=== PATIENT | male | born 1975 | race Caucasian/White ===

== ENCOUNTER → 2016-11-25 | Outpatient (CLI) | payer MEDICARE, MEDICAID ==
[~2016-11-25] MED LIST: FAMO20TA PO; FLUO20CA8 PO; FLUO20CA9 PO; PERP8TAB4 PO; Trilafon PO
== END ==
LOC: M OUTALCOH 09:22
PROVIDERS: ATTEND Psychiatry & Neurology Psychiatry
DX: Z13.9 Encounter for screening, unspecified (principal); F15.20 Other stimulant dependence, uncomplicated; F12.20 Cannabis dependence, uncomplicated

== ENCOUNTER 2016-11-29 09:07 | Emergency (ER) | payer MEDICARE, MEDICAID ==
[~2016-11-29] VITALS: Ht 180.3 cm; Wt 88.9 kg
[2016-11-29 09:08] VITALS: BP 138/86
[2016-11-29] MEDS ORDERED: FLUO20CA8 PO (09:19)
[2016-11-29] MEDS ORDERED: Trilafon PO (09:19)
[2016-11-29] MEDS ORDERED: PERP8TAB4 PO (09:40)
[2016-11-29] MEDS ORDERED: FLUO20CA9 PO (10:14)
[2016-11-29] MEDS ORDERED: FAMO20TA PO (10:14)
== END 2016-11-29 10:32 | disposition home or self-care (01) ==
LOC: M ED 10:13
DX: Z76.0 Encounter for issue of repeat prescription (principal)

== ENCOUNTER 2016-12-09 10:46 | Outpatient (RCR) | payer MEDICARE, MEDICAID | END 2016-12-13 | LOC: M OUTALCOH 10:46 | PROVIDERS: ATTEND Psychiatry & Neurology Psychiatry | DX: F15.20 Other stimulant dependence, uncomplicated (principal) ==

== ENCOUNTER 2017-01-08 14:00 | Outpatient (RCR) | payer MEDICARE, MEDICAID | END 2017-01-12 | LOC: M OUTALCOH 14:00 | PROVIDERS: ATTEND Psychiatry & Neurology Psychiatry | DX: F15.20 Other stimulant dependence, uncomplicated (principal); F12.20 Cannabis dependence, uncomplicated ==

== ENCOUNTER 2017-02-05 14:00 | Outpatient (RCR) | payer MEDICARE, MEDICAID | END 2017-02-12 | LOC: M OUTALCOH 14:00 | PROVIDERS: ATTEND Psychiatry & Neurology Psychiatry | DX: F15.20 Other stimulant dependence, uncomplicated (principal); F12.20 Cannabis dependence, uncomplicated ==

== ENCOUNTER 2017-02-26 05:02 | Emergency (ER) | payer MEDICAID, MEDICARE, OTHER ==
[~2017-02-26] VITALS: Ht 180.3 cm; Wt 90.0 kg
[2017-02-26] MEDS ORDERED: NORCO, ANEXSIA 5/325MG TABLET (HYDROcodone/ACETAMINOPHEN) PO ONE (06:30)
[2017-02-26] MEDS ORDERED: NORCOTAB PO (06:40)
[2017-02-26 06:46] VITALS: BP 138/89
--- NOTE | 2017-02-26 07:52 | REP ---
Clinical: Trauma. Technique: AP, lateral, bilateral oblique views of the left hand. Findings: Comminuted boxer's fracture involving the fifth metacarpal bone with volar angulation to the distal fracture fragment and overlying soft tissue swelling noted. Remainder examination appears normal. Impression: Comminuted closed boxer's fracture of the fifth metacarpal bone. Signed by Jan Painting MD 02/26/2017 07:43 A
== END 2017-02-26 06:47 | disposition home or self-care (01) ==
LOC: M ED 06:21
DX: S62.307A Unspecified fracture of fifth metacarpal bone, left hand, initial encounter for closed fracture (principal); W11.XXXA Fall on and from ladder, initial encounter; Y92.099 Unspecified place in other non-institutional residence as the place of occurrence of the external cause; Y93.9 Activity, unspecified; Y99.9 Unspecified external cause status; F17.200 Nicotine dependence, unspecified, uncomplicated; Z79.899 Other long term (current) drug therapy; Z88.8 Allergy status to other drugs, medicaments and biological substances

== ENCOUNTER 2017-03-13 09:00 | Outpatient (RCR) | payer OTHER, MEDICAID ==
[~2017-03-13 09:00] MED LIST changes: +FLUO20CA19 PO; -FLUO20CA9 PO; +NORCOTAB PO; +PERP8TAB25 PO; -PERP8TAB4 PO
== END 2017-03-14 ==
LOC: M OUTALCOH 09:00
PROVIDERS: ATTEND Psychiatry & Neurology Psychiatry
DX: F15.20 Other stimulant dependence, uncomplicated (principal); F12.20 Cannabis dependence, uncomplicated

== ENCOUNTER 2017-04-10 09:00 | Outpatient (RCR) | payer MEDICARE, MEDICAID | END 2017-04-14 | LOC: M OUTALCOH 09:00 | PROVIDERS: ATTEND Psychiatry & Neurology Psychiatry | DX: F15.20 Other stimulant dependence, uncomplicated (principal); F12.20 Cannabis dependence, uncomplicated ==

== ENCOUNTER → 2017-04-10 | Outpatient (REF) | payer MEDICARE ==
[2017-04-18 14:14] LABS: Cannabidiol Negative (.)
== END ==
LOC: M LABDRAW1 15:36
PROVIDERS: ATTEND Psychiatry & Neurology Psychiatry
DX: F15.20 Other stimulant dependence, uncomplicated (principal); F12.20 Cannabis dependence, uncomplicated

== ENCOUNTER 2017-06-02 15:00 | Outpatient (RCR) | payer MEDICARE | END 2017-06-14 | LOC: M OUTALCOH 15:00 | PROVIDERS: ATTEND Psychiatry & Neurology Psychiatry | DX: F15.20 Other stimulant dependence, uncomplicated (principal); F12.20 Cannabis dependence, uncomplicated ==

== ENCOUNTER → 2017-12-09 | Outpatient (CLI) | payer MEDICARE, MEDICAID | LOC: M OUTALCOH 10:42 | DX: Z13.9 Encounter for screening, unspecified (principal); F15.20 Other stimulant dependence, uncomplicated; F12.20 Cannabis dependence, uncomplicated | CPT/HCPCS: H0001 ==

== ENCOUNTER 2017-12-15 13:29 | Outpatient (RCR) | payer MEDICARE | END 2018-01-12 | disposition still patient (30) | LOC: M OUTALCOH 13:29 | DX: F15.20 Other stimulant dependence, uncomplicated (principal); F12.20 Cannabis dependence, uncomplicated; F10.20 Alcohol dependence, uncomplicated | CPT/HCPCS: 90834 ==

== ENCOUNTER 2018-01-21 14:16 | Outpatient (RCR) | payer MEDICARE | END 2018-02-12 | LOC: M OUTALCOH 02-11 13:30 | DX: F15.20 Other stimulant dependence, uncomplicated (principal); F12.20 Cannabis dependence, uncomplicated; F10.20 Alcohol dependence, uncomplicated | CPT/HCPCS: 90834 ==

== ENCOUNTER 2018-02-20 11:09 | Outpatient (RCR) | payer MEDICARE | END 2018-03-14 | LOC: M OUTALCOH 11:09 | DX: F15.20 Other stimulant dependence, uncomplicated (principal); F12.20 Cannabis dependence, uncomplicated; F10.20 Alcohol dependence, uncomplicated | CPT/HCPCS: 90832 ==

== ENCOUNTER 2018-04-01 14:22 | Outpatient (RCR) | payer MEDICARE | END 2018-04-14 | LOC: M OUTALCOH 14:22 | DX: F15.20 Other stimulant dependence, uncomplicated (principal); F12.20 Cannabis dependence, uncomplicated; F10.20 Alcohol dependence, uncomplicated | CPT/HCPCS: 90832 ==

== ENCOUNTER 2018-05-20 14:29 | Outpatient (RCR) | payer MEDICARE | END 2018-06-14 | LOC: M OUTALCOH 14:29 | DX: F15.20 Other stimulant dependence, uncomplicated (principal); F12.20 Cannabis dependence, uncomplicated; F10.20 Alcohol dependence, uncomplicated | CPT/HCPCS: 90834 ==

== ENCOUNTER → 2018-07-15 | Outpatient (RCR) | payer MEDICARE | LOC: M OUTALCOH 12:34 | DX: F15.20 Other stimulant dependence, uncomplicated (principal); F12.20 Cannabis dependence, uncomplicated; F10.20 Alcohol dependence, uncomplicated | CPT/HCPCS: 90834 ==

== ENCOUNTER 2018-08-12 14:11 | Outpatient (RCR) | payer MEDICARE | END 2018-08-14 | LOC: M OUTALCOH 14:11 | DX: F15.20 Other stimulant dependence, uncomplicated (principal); F12.20 Cannabis dependence, uncomplicated; F10.20 Alcohol dependence, uncomplicated | CPT/HCPCS: 90834 ==

== ENCOUNTER 2018-09-10 13:59 | Outpatient (RCR) | payer MEDICARE | END 2018-09-14 | LOC: M OUTALCOH 13:59 | PROVIDERS: ATTEND Psychiatry & Neurology Psychiatry | DX: F10.20 Alcohol dependence, uncomplicated (principal); F12.20 Cannabis dependence, uncomplicated; F15.20 Other stimulant dependence, uncomplicated ==

== ENCOUNTER 2018-10-14 14:00 | Outpatient (RCR) | payer MEDICARE | END 2018-10-15 | LOC: M OUTALCOH 14:00 | PROVIDERS: ATTEND Psychiatry & Neurology Psychiatry | DX: F10.20 Alcohol dependence, uncomplicated (principal); F12.20 Cannabis dependence, uncomplicated; F15.20 Other stimulant dependence, uncomplicated ==

== ENCOUNTER 2018-10-28 13:52 | Outpatient (RCR) | payer MEDICARE | END 2018-11-12 | LOC: M OUTALCOH 13:52 | PROVIDERS: ATTEND Psychiatry & Neurology Psychiatry | DX: F10.20 Alcohol dependence, uncomplicated (principal); F12.20 Cannabis dependence, uncomplicated; F15.20 Other stimulant dependence, uncomplicated ==

== ENCOUNTER → 2018-12-23 | Outpatient (REF) | payer MEDICARE ==
[~2018-12-23] MED LIST changes: +HYDR-3715 PO; -NORCOTAB PO
[2018-12-23 12:28] LABS: BASO % 0.5 % (0.0-1.0); EOS # 0.1 10^3/uL (0.0-0.50); EOS % 0.6 % (0.0-3.0); HEMATOCRIT 45.5 % (42.0-52.0); HEMOGLOBIN 15.2 g/dl (13.5-17.5); LYMPH # 2.6 10^3/uL (1.5-4.5); LYMPH % 29.9 % (24.0-44.0); MEAN CORPUSCULAR HEMOGLOBIN 29.9 pg (27.0-33.0); MEAN CORPUSCULAR HGB CONC 33.4 g/dl (32.0-36.5); MEAN CORPUSCULAR VOLUME 89.6 fl (80.0-96.0); MONO # 0.9 10^3/uL (0.0-0.8); MONO % 10.6 % (0.0-5.0); NEUTROPHILS # 5.1 10^3/uL (1.8-7.7); NEUTROPHILS % 58.2 % (36.0-66.0); PLATELET COUNT, AUTOMATED 272 10^3/uL (150-450); RED BLOOD COUNT 5.08 10^6/uL (4.30-6.10); WHITE BLOOD COUNT 8.8 10^3/uL (4.0-10.0)
[2018-12-23 12:30] LABS: APPEARANCE, URINE HAZY (CLEAR); BACTERIA, URINE AUTO NEGATIVE (NEGATIVE); BILIRUBIN, URINE AUTO NEGATIVE (NEGATIVE); BLOOD, URINE BLOOD NEGATIVE (NEGATIVE); CALCIUM OXALATE CRYSTALS SMALL; COLOR, URINE YELLOW (YELLOW); GLUCOSE, URINE (UA) AUTO NEGATIVE (NEGATIVE); KETONE, URINE AUTO NEGATIVE (NEGATIVE); LEUKOCYTE ESTERASE, URINE AUTO NEGATIVE (NEGATIVE); MUCUS, URINE SMALL (NEGATIVE); NITRITE, URINE AUTO NEGATIVE (NEGATIVE); PROTEIN, URINE AUTO NEGATIVE (NEGATIVE); RBC, URINE AUTO 5 /HPF (0-3); SPECIFIC GRAVITY URINE AUTO 1.025 (1.002-1.035); SQUAMOUS EPITHELIAL CELL UR AU 0 /HPF (0-6); WBC, URINE AUTO 1 /HPF (0-3)
[2018-12-23 13:36] LABS: ALBUMIN 3.8 GM/DL (3.2-5.2); ALT/SGPT 39 U/L (12-78); BILIRUBIN,TOTAL 0.2 MG/DL (0.2-1.0); BLOOD UREA NITROGEN 9 MG/DL (7-18); CALCIUM LEVEL 8.2 MG/DL (8.5-10.1); CARBON DIOXIDE LEVEL 27 MEQ/L (21-32); CHLORIDE LEVEL 107 MEQ/L (98-107); CHOLESTEROL LEVEL 152 MG/DL (<200); CREATININE FOR GFR 0.87 MG/DL (0.70-1.30); FREE T4 1.15 NG/DL (0.76-1.46); GLOMERULAR FILTRATION RATE > 60.0 (>60); GLUCOSE, FASTING 109 MG/DL (70-100); HDL CHOLESTEROL 38 MG/DL (>40); HEPATITIS A ANTIBODY IGM NEGATIVE (NEGATIVE); HEPATITIS B CORE ANTIBODY IGM NEGATIVE (NEGATIVE); HEPATITIS B SURFACE ANTIGEN NEGATIVE (NEGATIVE); HIV 1&2 SCREEN CENTAUR NEGATIVE (NEGATIVE); LDL CHOLESTEROL 79 MG/DL (<100); NON-HDL-C 114 MG/DL; POTASSIUM SERUM 3.8 MEQ/L (3.5-5.1); SODIUM LEVEL 140 MEQ/L (136-145); TOTAL 25(OH) VITAMIN D 9.4 NG/ML (30.0-100.0); TOTAL PROTEIN 6.8 GM/DL (6.4-8.2); TRIGLYCERIDES LEVEL 173 MG/DL (<150)
[2018-12-23 13:59] LABS: CHLAMYDIA DNA AMPLIFICATION NEGATIVE (NEGATIVE); GC DNA AMPLIFICATION NEGATIVE (NEGATIVE)
[2018-12-23 14:10] LABS: HEMOGLOBIN A1c 5.5 %
[2018-12-25 00:09] LABS: Lyme Disease IgG/IgM Antibodie <0.91 ISR (0.00-0.90); Lyme Disease IgM Ab Quantitati <0.80 index (0.00-0.79)
== END ==
LOC: M LAB REF 11:50
PROVIDERS: ATTEND Family Medicine
DX: Z00.01 Encounter for general adult medical examination with abnormal findings (principal); Z11.3 Encounter for screening for infections with a predominantly sexual mode of transmission; Z13.228 Encounter for screening for other metabolic disorders

== ENCOUNTER 2018-12-30 13:52 | Outpatient (RCR) | payer MEDICARE | END 2019-01-12 | LOC: M OUTALCOH 13:52 | PROVIDERS: ATTEND Psychiatry & Neurology Psychiatry | DX: F10.20 Alcohol dependence, uncomplicated (principal); F12.20 Cannabis dependence, uncomplicated; F15.20 Other stimulant dependence, uncomplicated ==

== ENCOUNTER → 2019-01-11 | Outpatient (REF) | payer MEDICARE ==
[2019-01-11 17:56] LABS: APPEARANCE, URINE CLEAR (CLEAR); BACTERIA, URINE AUTO NEGATIVE (NEGATIVE); BILIRUBIN, URINE AUTO NEGATIVE (NEGATIVE); BLOOD, URINE BLOOD NEGATIVE (NEGATIVE); CALCIUM OXALATE CRYSTALS SMALL; COLOR, URINE YELLOW (YELLOW); GLUCOSE, URINE (UA) AUTO NEGATIVE (NEGATIVE); KETONE, URINE AUTO NEGATIVE (NEGATIVE); LEUKOCYTE ESTERASE, URINE AUTO NEGATIVE (NEGATIVE); MUCUS, URINE SMALL (NEGATIVE); NITRITE, URINE AUTO NEGATIVE (NEGATIVE); PROTEIN, URINE AUTO NEGATIVE (NEGATIVE); RBC, URINE AUTO 0 /HPF (0-3); SPECIFIC GRAVITY URINE AUTO 1.021 (1.002-1.035); SQUAMOUS EPITHELIAL CELL UR AU 0 /HPF (0-6); UROBILINOGEN, URINE AUTO 0.2 mg/dL (0.0-2.0); WBC, URINE AUTO 0 /HPF (0-3)
== END ==
LOC: M SMT 17:03
PROVIDERS: ATTEND Nurse Practitioner Family
DX: R31.29 Other microscopic hematuria (principal)
CPT/HCPCS: 81001; 87086; 88108; G0463

== ENCOUNTER → 2019-01-18 | Outpatient (CLI) | payer MEDICAID, MEDICARE ==
[~2019-01-18] MED LIST changes: +ISOVUE-370 76% 100ML VIAL (Q9967) As Ordered ONE
--- NOTE | 2019-01-19 05:38 | REP ---
Clinical: Hematuria. Technique: Axial precontrast, contrast enhanced, and delayed images of the abdomen and pelvis using 100 ml Isovue 370 intravenous contrast material with coronal and sagittal re-formations and 3-D CT urogram. Findings: A very subtle 1.1 cm cyst is identified in the mid pole region of the left kidney. The kidneys as well as ureters and bladder are otherwise normal in all phases of enhancement. No evidence for nephroureterolithiasis, hydroureteronephrosis or renal mass lesion. Liver, spleen, pancreas, gallbladder, and bilateral adrenal glands are normal. The enteric system is without obstruction or acute inflammatory process. Normal terminal ileum and appendix are identified in the right lower quadrant. Pelvis demonstrates normal bladder and age appropriate prostate/seminal vesicles. No ascites. No free air. No significant adenopathy. Atherosclerotic changes of the aorta noted without aneurysm or dissection. Lung bases demonstrate minimal posterior basilar dependent change. Impression: 1. 1.1 cm cyst in the left kidney. No further urinary tract pathology appreciated. 2. No acute abdominopelvic pathology noted. Electronically Signed by Jan Painting MD 01/19/2019 05:30 A
== END ==
LOC: M RAD 15:29
PROVIDERS: ATTEND Nurse Practitioner Family
DX: N28.1 Cyst of kidney, acquired (principal)
CPT/HCPCS: 74178; Q9967

== ENCOUNTER 2019-02-10 13:00 | Outpatient (RCR) | payer MEDICARE ==
[~2019-02-10 13:00] MED LIST changes: -ISOVUE-370 76% 100ML VIAL (Q9967) As Ordered ONE
== END 2019-02-12 ==
LOC: M OUTALCOH 13:00
PROVIDERS: ATTEND Psychiatry & Neurology Psychiatry
DX: F15.20 Other stimulant dependence, uncomplicated (principal); F12.20 Cannabis dependence, uncomplicated; F10.20 Alcohol dependence, uncomplicated

== ENCOUNTER 2019-03-10 13:06 | Outpatient (RCR) | payer MEDICARE | END 2019-03-14 | LOC: M OUTALCOH 13:06 | PROVIDERS: ATTEND Psychiatry & Neurology Psychiatry | DX: F15.20 Other stimulant dependence, uncomplicated (principal); F12.20 Cannabis dependence, uncomplicated; F10.20 Alcohol dependence, uncomplicated ==

== ENCOUNTER 2019-04-05 08:00 | Outpatient (RCR) | payer MEDICARE | END 2019-04-14 | LOC: M OUTALCOH 08:00 | PROVIDERS: ATTEND Psychiatry & Neurology Psychiatry | DX: F10.20 Alcohol dependence, uncomplicated (principal); F12.20 Cannabis dependence, uncomplicated; F15.20 Other stimulant dependence, uncomplicated ==

== ENCOUNTER 2019-05-03 07:52 | Outpatient (RCR) | payer MEDICARE | END 2019-05-15 | LOC: M OUTALCOH 07:52 | PROVIDERS: ATTEND Psychiatry & Neurology Psychiatry | DX: F10.20 Alcohol dependence, uncomplicated (principal); F12.20 Cannabis dependence, uncomplicated; F15.20 Other stimulant dependence, uncomplicated ==

== ENCOUNTER → 2019-06-14 | Outpatient (RCR) | payer MEDICARE | LOC: M OUTALCOH 05-24 08:58 | PROVIDERS: ATTEND Psychiatry & Neurology Psychiatry | DX: F10.20 Alcohol dependence, uncomplicated (principal); F12.20 Cannabis dependence, uncomplicated; F15.20 Other stimulant dependence, uncomplicated ==

== ENCOUNTER 2019-07-12 08:00 | Outpatient (RCR) | payer MEDICARE | END 2019-07-15 | LOC: M OUTALCOH 08:00 | PROVIDERS: ATTEND Psychiatry & Neurology Psychiatry | DX: F10.20 Alcohol dependence, uncomplicated (principal); F12.20 Cannabis dependence, uncomplicated; F15.20 Other stimulant dependence, uncomplicated ==

== ENCOUNTER 2019-08-09 08:00 | Outpatient (RCR) | payer MEDICARE | END 2019-08-14 | LOC: M OUTALCOH 08:00 | PROVIDERS: ATTEND Psychiatry & Neurology Psychiatry | DX: F15.20 Other stimulant dependence, uncomplicated (principal); F12.20 Cannabis dependence, uncomplicated; F10.20 Alcohol dependence, uncomplicated ==

== ENCOUNTER 2019-09-06 08:00 | Outpatient (RCR) | payer MEDICARE ==
[~2019-09-06 08:00] MED LIST changes: +FLUO20CA20 PO; -FLUO20CA8 PO
== END 2019-09-14 ==
LOC: M OUTALCOH 08:00
PROVIDERS: ATTEND Psychiatry & Neurology Psychiatry
DX: F10.20 Alcohol dependence, uncomplicated (principal); F12.20 Cannabis dependence, uncomplicated; F15.20 Other stimulant dependence, uncomplicated

== ENCOUNTER 2019-10-11 08:00 | Outpatient (RCR) | payer MEDICARE ==
[2019-10-19] MEDS ORDERED: INVE1.5T PO (09:38)
[2019-10-19] MEDS ORDERED: AMAN100T PO (09:38)
[2019-10-19] MEDS ORDERED: BUPR50TA PO (09:38)
[2019-10-19] MEDS ORDERED: INVE1.75 IM (10:32)
== END 2019-10-15 ==
LOC: M OUTALCOH 08:00
PROVIDERS: ATTEND Psychiatry & Neurology Addiction Medicine
DX: F10.20 Alcohol dependence, uncomplicated (principal); F12.20 Cannabis dependence, uncomplicated; F15.20 Other stimulant dependence, uncomplicated

== ENCOUNTER 2019-10-22 10:03 | Day surgery (SDC) | payer MEDICARE, MEDICAID ==
[~2019-10-22] VITALS: Ht 180.3 cm; Wt 104.7 kg
[~2019-10-22 10:03] MED LIST changes: +AMAN100T PO; +BUPR50TA PO; -FLUO20CA19 PO; +FLUO20CA22 PO; +INVE1.5T PO; +INVE1.75 IM; +LR 1,000 ML IV ONE; +ceFAZolin SOD 2 GM in IV 1 EA IV ONE
[2019-10-22] MEDS ORDERED: ROPIvacaine 0.5% 30 ML INJECTION (J2795 PER 1MG) ONE (10:04)
[2019-10-22] MEDS ORDERED: dexameTHASONE 10 MG/1 ML VIAL PRES.FREE (J1100) ONE (10:04)
[2019-10-22] MEDS ORDERED: LEVALBUTEROL 1.25 MG/0.5 ML CONCENTRATE NEB As Ordered ONE (11:46)
[2019-10-22] MEDS ORDERED: fentaNYL 100 MCG/2 ML INJECTION (J3010) As Ordered ONE ×2 (11:52→13:05)
[2019-10-22] MEDS ORDERED: MIDAZOLAM INJ 2 MG/2 ML VIAL (J2250) As Ordered ONE ×2 (11:52→13:05)
[2019-10-22] MEDS ORDERED: LEVALBUTEROL 1.25 MG/0.5 ML CONCENTRATE NEB INH ONE (12:00)
[2019-10-22] MEDS: MIDAZOLAM INJ 2 MG/2 ML VIAL (J2250) IV SCH (12:05)
[2019-10-22] MEDS: fentaNYL 100 MCG/2 ML INJECTION (J3010) IV SCH ×2 (12:05→12:10)
[2019-10-22] MEDS ORDERED: dexameTHASONE 4 MG/ML 1ML VIAL (J1100) As Ordered ONE (13:04)
[2019-10-22] MEDS ORDERED: METOCLOPRAMIDE INJ 10MG/2ML VIAL (J2765) As Ordered ONE (13:05)
[2019-10-22] MEDS ORDERED: propofoL 200 MG/20 ML VIAL As Ordered ONE (13:05)
[2019-10-22] MEDS ORDERED: LIDOCAINE 2% INJ 100 MG/5 ML SDV (FOR ANES.) As Ordered ONE (13:05)
[2019-10-22] MEDS ORDERED: ONDANSETRON 4MG/2ML VIAL (J2405) As Ordered ONE (13:05)
[2019-10-22] MEDS ORDERED: ePHEDrine SULFATE 25 MG/5 ML(5MG/ML) SYRINGE As Ordered ONE (13:28)
[2019-10-22] MEDS ORDERED: KETOROLAC 60 MG/2 ML VIAL (J1885) As Ordered ONE (14:26)
[2019-10-22] MEDS ORDERED: KETAMINE HCL 200 MG/20 ML VIAL As Ordered ONE (14:26)
--- NOTE | 2019-10-22 14:43 | REP ---
RIGHT FOREARM: Three views. HISTORY: Open reduction internal fixation. Intraoperative imaging. 70 seconds of fluoroscopy time is reported. FINDINGS: A sequence of three last image hold fluoroscopically obtained spot radiographs of the right wrist and forearm document screw plate fixation distal radial fracture. Electronically Signed by Tony Santiago MD 10/22/2019 03:53 P
[2019-10-22] MEDS ORDERED: HYDROMORPHONE HCL 0.5 MG/ 0.5 ML SYRINGE (J1170 PER 1) IV PRN (15:15)
[2019-10-22] MEDS ORDERED: LR 1,000 ML IV SCH (15:15)
[2019-10-22] MEDS ORDERED: PERCOCET 5MG/325MG TAB PO PRN (15:15)
[2019-10-22] MEDS ORDERED: fentaNYL 100 MCG/2 ML INJECTION (J3010) IV PRN (15:15)
[2019-10-22] MEDS ORDERED: ONDANSETRON 4MG/2ML VIAL (J2405) IV PRN (15:15)
[2019-10-22] MEDS ORDERED: oxyCODONE 5MG TAB PO PRN ×2 (15:30)
--- NOTE | 2019-10-22 15:31 | RO ---
DATE OF PROCEDURE: 10/22/2019 PREPROCEDURE DIAGNOSIS: Right distal radius fracture and radial shaft fracture. POSTPROCEDURE DIAGNOSIS: Right distal radius fracture and radial shaft fracture. PROCEDURE: Open reduction, internal fixation of complex intra-articular distal radius fracture with open reduction, internal fixation of radial shaft fracture. SURGEON: Dr. Florentino Mei NURSING AIDE: None. ANESTHESIA: General with peripheral nerve block. COMPLICATIONS: None. PREOPERATIVE ANTIBIOTICS: 2 grams of Ancef. ESTIMATED BLOOD LOSS Minimal, 10 mL. OPERATIVE FINDINGS: Upon evaluating the distal radius fracture, there appeared to be significant callous formation already requiring extra time in debridement utilizing scalpel, freer elevator along with even an osteotome and mallet in order to free the fragments. Also required more dorsal dissection via the volar incision in order to adequately free the fracture fragments to reduce them properly. Hence the modifier 22. INDICATION: This is a 44-year-old male that suffered a complex distal radius fracture with radial shaft component that failed nonoperative treatment. We discussed the risks and benefits of surgical intervention including but not limited to infection, damage to surrounding structures incomplete relief, malunion, nonunion. Patient wished to proceed. DESCRIPTION OF PROCEDURE: The patient was brought back to the operating room (OR) in the supine position and underwent general anesthesia at which point the right arm was prepped and draped in the usual fashion. We then had a time-out confirming site, side, and surgery. Once in agreement, we elevated the tourniquet up to 250 mmHg. We then made a longitudinal incision over the flexor carpi radialis (FCR), contracted it ulnarly at which point we encountered flexor pollicis longus (FPL). This was retracted radially. Exposed the pronator quadratus. We lifted this up in one nice sheet exposing the distal radius fracture. It was difficult at first to find the fracture plane due to significant callous formation. We did have to use a combination of the scalpel, freer elevator and osteotome with mallet in order to osteotomize the distal radius from its interval healing from the injury and in order to get adequate reduction. Once we reduced the fragment using indirect methods and manual manipulation with the aid of the osteotome. We used a 1.6 K-wire to pennate the plates. At this point, we identified the radial shaft fracture and interval healing that occurred there had been in reasonable alignment, therefore, this was not freed up but allowed that we could use a plate for fixation at a later portion of the procedure. Once we the distal radius fracture pinned in correct position, we selected a plate. We had to choose the variable angle metadiaphysis plate due to this reason, also there is a bigger shaft component to get adequate fixation of both. I applied the variable angle to the very distal intra-articular component of the distal radius fracture. This was then held into place using the oblong hole with a cortical 2.7 screw, at which point we then locked the plate down correctly, we placed two additional cortical screws in the shaft with one locking screw to obtain appropriate working length. We then turned our attention to the distal radius. We used all four distal locking holes for the most distal strength and confirmed this position on both AP and lateral views to ensure adequate reduction and fixation along without joint penetration. The joint was visualized on both the radiocarpal and the radioulnar joint (RUJ) without any screw penetration at which point we were very happy with this fixation. We did remove the working screw because I had loosening and due to three proximal screws, I did feel the need to place additional hardware. We did have good fixation with one locking screw in the shaft. We then we irrigated thoroughly. Closed the pronator quadratus with #2-0 Vicryl, subcutaneous tissue with #2-0 Vicryl and skin with leatha. Placed the patient in a dressing with Adaptic gauze, Webril, volar posterior splints. With additional Webril and immanuel. Tourniquet was let down at 59 minutes. Patient was then awakened from general anesthesia, taken to the postanesthesia care unit (PACU) in stable condition. POSTOPERATIVE PLAN: The patient will work on pain control, range of motion. We will see him in 2 weeks to remove the leatha and convert him over to removal of splint to work on wrist range of motion. The patient voiced understanding and agreement at that time.
[2019-10-22 16:10] VITALS: BP 135/81
== END 2019-10-22 16:53 | disposition home or self-care (01) ==
LOC: M SDC 10:03
PROVIDERS: ATTEND Orthopaedic Surgery Hand Surgery
DX: S52.301A Unspecified fracture of shaft of right radius, initial encounter for closed fracture (principal); S52.571A Other intraarticular fracture of lower end of right radius, initial encounter for closed fracture; X58.XXXA Exposure to other specified factors, initial encounter; Y92.89 Other specified places as the place of occurrence of the external cause; Y93.9 Activity, unspecified; Y99.9 Unspecified external cause status; I10 Essential (primary) hypertension; K21.9 Gastro-esophageal reflux disease without esophagitis; F32.9 Major depressive disorder, single episode, unspecified; F17.218 Nicotine dependence, cigarettes, with other nicotine-induced disorders; F12.10 Cannabis abuse, uncomplicated; F15.10 Other stimulant abuse, uncomplicated; Z79.899 Other long term (current) drug therapy; Z88.8 Allergy status to other drugs, medicaments and biological substances
CPT/HCPCS: 25515; 25608; 76000; C1713; J0690; J1100; J1885; J2250; J2405; J2765; J2795; J3010

== ENCOUNTER 2019-11-01 09:25 | Outpatient (RCR) | payer MEDICARE ==
[~2019-11-01 09:25] MED LIST changes: -LR 1,000 ML IV ONE; -ceFAZolin SOD 2 GM in IV 1 EA IV ONE
== END 2019-11-13 ==
LOC: M OUTALCOH 09:25
PROVIDERS: ATTEND Psychiatry & Neurology Addiction Medicine
DX: F10.20 Alcohol dependence, uncomplicated (principal); F12.20 Cannabis dependence, uncomplicated; F15.20 Other stimulant dependence, uncomplicated

== ENCOUNTER 2019-11-29 08:52 | Outpatient (RCR) | payer MEDICARE | END 2019-12-14 | LOC: M OUTALCOH 08:52 | PROVIDERS: ATTEND Psychiatry & Neurology Addiction Medicine | DX: F15.20 Other stimulant dependence, uncomplicated (principal); F12.20 Cannabis dependence, uncomplicated; F10.20 Alcohol dependence, uncomplicated ==

== ENCOUNTER 2020-01-03 08:00 | Outpatient (RCR) | payer MEDICARE | END 2020-01-13 | LOC: M OUTALCOH 08:00 | PROVIDERS: ATTEND Psychiatry & Neurology Addiction Medicine | DX: F15.20 Other stimulant dependence, uncomplicated (principal); F10.20 Alcohol dependence, uncomplicated; F12.20 Cannabis dependence, uncomplicated ==

== ENCOUNTER → 2020-01-19 | Outpatient (REF) | payer MEDICARE ==
[2020-01-19 12:43] LABS: BASO # 0.1 10^3/uL (0.0-0.2); BASO % 0.6 % (0.0-1.0); EOS # 0.2 10^3/uL (0.0-0.5); EOS % 2.1 % (0.0-3.0); HEMATOCRIT 48.3 % (42.0-52.0); HEMOGLOBIN 16.8 g/dl (13.5-17.5); LYMPH # 3.8 10^3/uL (1.5-5.0); LYMPH % 40.7 % (24.0-44.0); MEAN CORPUSCULAR HEMOGLOBIN 30.8 pg (27.0-33.0); MEAN CORPUSCULAR HGB CONC 34.8 g/dl (32.0-36.5); MEAN CORPUSCULAR VOLUME 88.5 fl (80.0-96.0); MONO # 0.8 10^3/uL (0.0-0.8); MONO % 8.2 % (0.0-5.0); NEUTROPHILS # 4.5 10^3/uL (1.5-8.5); NEUTROPHILS % 48.2 % (36.0-66.0); PLATELET COUNT, AUTOMATED 280 10^3/uL (150-450); RED BLOOD COUNT 5.46 10^6/uL (4.30-6.10); WHITE BLOOD COUNT 9.3 10^3/uL (4.0-10.0)
[2020-01-19 12:50] LABS: ALBUMIN 3.9 GM/DL (3.2-5.2); ALT/SGPT 42 U/L (12-78); BILIRUBIN,TOTAL 0.4 MG/DL (0.2-1.0); BLOOD UREA NITROGEN 7 MG/DL (7-18); CALCIUM LEVEL 9.5 MG/DL (8.5-10.1); CARBON DIOXIDE LEVEL 29 MEQ/L (21-32); CHLORIDE LEVEL 104 MEQ/L (98-107); CHOLESTEROL LEVEL 223 MG/DL (<200); CHOLESTEROL RISK RATIO 5.439 (<5); CREATININE FOR GFR 0.94 MG/DL (0.70-1.30); FREE T4 1.23 NG/DL (0.76-1.46); GLOMERULAR FILTRATION RATE > 60.0 (>60); GLUCOSE, FASTING 91 MG/DL (70-100); HDL CHOLESTEROL 41 MG/DL (>40); LDL CHOLESTEROL 153 MG/DL (<100); NON-HDL-C 182 MG/DL; POTASSIUM SERUM 4.1 MEQ/L (3.5-5.1); SODIUM LEVEL 140 MEQ/L (136-145); TOTAL 25(OH) VITAMIN D 11.9 NG/ML (30.0-100.0); TOTAL PROTEIN 7.3 GM/DL (6.4-8.2); TRIGLYCERIDES LEVEL 144 MG/DL (<150)
[2020-01-19 13:12] LABS: APPEARANCE, URINE HAZY (CLEAR); BACTERIA, URINE AUTO NEGATIVE (NEGATIVE); BILIRUBIN, URINE AUTO NEGATIVE (NEGATIVE); BLOOD, URINE BLOOD NEGATIVE (NEGATIVE); CALCIUM OXALATE CRYSTALS SMALL; COLOR, URINE YELLOW (YELLOW); GLUCOSE, URINE (UA) AUTO NEGATIVE (NEGATIVE); KETONE, URINE AUTO NEGATIVE (NEGATIVE); LEUKOCYTE ESTERASE, URINE AUTO NEGATIVE (NEGATIVE); MUCUS, URINE SMALL (NEGATIVE); NITRITE, URINE AUTO NEGATIVE (NEGATIVE); PROTEIN, URINE AUTO NEGATIVE (NEGATIVE); RBC, URINE AUTO 1 /HPF (0-3); SQUAMOUS EPITHELIAL CELL UR AU 0 /HPF (0-6); UROBILINOGEN, URINE AUTO 0.2 mg/dL (0.0-2.0); WBC, URINE AUTO 1 /HPF (0-3)
[2020-01-19 13:13] LABS: HEMOGLOBIN A1c 5.8 %
== END ==
LOC: M LAB REF 11:44
PROVIDERS: ATTEND Nurse Practitioner Family
DX: K21.9 Gastro-esophageal reflux disease without esophagitis (principal); F32.9 Major depressive disorder, single episode, unspecified; Z13.9 Encounter for screening, unspecified; E55.9 Vitamin D deficiency, unspecified; F17.210 Nicotine dependence, cigarettes, uncomplicated; F19.10 Other psychoactive substance abuse, uncomplicated; Z79.899 Other long term (current) drug therapy

== ENCOUNTER 2020-02-11 10:38 | Outpatient (RCR) | payer MEDICARE | END 2020-02-13 | LOC: M OUTALCOH 10:38 | PROVIDERS: ATTEND Psychiatry & Neurology Addiction Medicine | DX: F15.20 Other stimulant dependence, uncomplicated (principal); F12.20 Cannabis dependence, uncomplicated; F10.20 Alcohol dependence, uncomplicated ==

== ENCOUNTER → 2020-03-14 | Outpatient (RCR) | payer MEDICARE | LOC: M OUTALCOH 02-21 13:01 | PROVIDERS: ATTEND Psychiatry & Neurology Addiction Medicine | DX: F15.20 Other stimulant dependence, uncomplicated (principal); F12.20 Cannabis dependence, uncomplicated; F10.20 Alcohol dependence, uncomplicated ==

== ENCOUNTER 2020-05-12 13:00 | Outpatient (RCR) | payer MEDICARE ==
[~2020-05-12 13:00] MED LIST changes: +BUPR-69 PO; -BUPR50TA PO
== END 2020-05-15 ==
LOC: M OUTALCOH 13:00
PROVIDERS: ATTEND Psychiatry & Neurology Addiction Medicine
DX: F15.20 Other stimulant dependence, uncomplicated (principal); F12.20 Cannabis dependence, uncomplicated; F10.20 Alcohol dependence, uncomplicated

== ENCOUNTER 2020-06-09 13:26 | Outpatient (RCR) | payer MEDICARE | END 2020-06-14 | LOC: M OUTALCOH 13:26 | PROVIDERS: ATTEND Psychiatry & Neurology Addiction Medicine | DX: F15.20 Other stimulant dependence, uncomplicated (principal); F12.20 Cannabis dependence, uncomplicated; F10.20 Alcohol dependence, uncomplicated ==

== ENCOUNTER → 2020-06-13 | Outpatient (REF) | payer MEDICARE, MEDICAID ==
[2020-06-13 12:52] LABS: BASO # 0.1 10^3/uL (0.0-0.2); BASO % 0.6 % (0.0-1.0); EOS # 0.2 10^3/uL (0.0-0.5); EOS % 2.2 % (0.0-3.0); HEMATOCRIT 50.8 % (42.0-52.0); HEMOGLOBIN 16.7 g/dl (13.5-17.5); LYMPH # 2.9 10^3/uL (1.5-5.0); MEAN CORPUSCULAR HEMOGLOBIN 29.2 pg (27.0-33.0); MEAN CORPUSCULAR HGB CONC 32.9 g/dl (32.0-36.5); MEAN CORPUSCULAR VOLUME 88.8 fl (80.0-96.0); MONO # 0.8 10^3/uL (0.0-0.8); MONO % 10.1 % (0.0-5.0); NEUTROPHILS # 4.3 10^3/uL (1.5-8.5); NEUTROPHILS % 51.7 % (36.0-66.0); PLATELET COUNT, AUTOMATED 287 10^3/uL (150-450); RED BLOOD COUNT 5.72 10^6/uL (4.30-6.10); WHITE BLOOD COUNT 8.3 10^3/uL (4.0-10.0)
[2020-06-13 13:52] LABS: HEMOGLOBIN A1c 5.1 %
== END ==
LOC: M LAB REF 12:18
PROVIDERS: ATTEND Nurse Practitioner Family
DX: E78.5 Hyperlipidemia, unspecified (principal); R73.03 Prediabetes; Z13.9 Encounter for screening, unspecified; F17.210 Nicotine dependence, cigarettes, uncomplicated

== ENCOUNTER 2020-07-14 13:00 | Outpatient (RCR) | payer MEDICARE | END 2020-07-15 | LOC: M OUTALCOH 13:00 | PROVIDERS: ATTEND Psychiatry & Neurology Addiction Medicine | DX: F15.20 Other stimulant dependence, uncomplicated (principal); F12.220 Cannabis dependence with intoxication, uncomplicated; F10.20 Alcohol dependence, uncomplicated ==

== ENCOUNTER → 2020-07-17 | Outpatient (REF) | payer MEDICARE ==
[2020-07-17 12:38] LABS: AMORPHOUS SEDIMENT SMALL (NEGATIVE); APPEARANCE, URINE CLOUDY (CLEAR); BACTERIA, URINE AUTO NEGATIVE (NEGATIVE); BILIRUBIN, URINE AUTO NEGATIVE (NEGATIVE); BLOOD, URINE BLOOD NEGATIVE (NEGATIVE); COLOR, URINE YELLOW (YELLOW); GLUCOSE, URINE (UA) AUTO NEGATIVE (NEGATIVE); KETONE, URINE AUTO NEGATIVE (NEGATIVE); LEUKOCYTE ESTERASE, URINE AUTO NEGATIVE (NEGATIVE); MUCUS, URINE SMALL (NEGATIVE); NITRITE, URINE AUTO NEGATIVE (NEGATIVE); PROTEIN, URINE AUTO NEGATIVE (NEGATIVE); RBC, URINE AUTO 0 /HPF (0-3); SPECIFIC GRAVITY URINE AUTO 1.019 (1.002-1.035); SQUAMOUS EPITHELIAL CELL UR AU 0 /HPF (0-6); UROBILINOGEN, URINE AUTO 0.2 mg/dL (0.0-2.0); WBC, URINE AUTO 1 /HPF (0-3)
[2020-07-17 12:50] LABS: ALBUMIN 3.6 GM/DL (3.2-5.2); ALT/SGPT 37 U/L (12-78); BILIRUBIN,TOTAL 0.5 MG/DL (0.2-1.0); BLOOD UREA NITROGEN 9 MG/DL (7-18); CALCIUM LEVEL 9.6 MG/DL (8.5-10.1); CARBON DIOXIDE LEVEL 31 MEQ/L (21-32); CHLORIDE LEVEL 104 MEQ/L (98-107); CHOLESTEROL LEVEL 205 MG/DL (<200); CHOLESTEROL RISK RATIO 5.256 (<5); CREATININE FOR GFR 0.99 MG/DL (0.70-1.30); GLOMERULAR FILTRATION RATE > 60.0 (>60); GLUCOSE, FASTING 112 MG/DL (70-100); HDL CHOLESTEROL 39 MG/DL (>40); LDL CHOLESTEROL 131 MG/DL (<100); NON-HDL-C 166 MG/DL; POTASSIUM SERUM 4.2 MEQ/L (3.5-5.1); SODIUM LEVEL 139 MEQ/L (136-145); TOTAL 25(OH) VITAMIN D 34.4 NG/ML (30.0-100.0); TOTAL PROTEIN 7.5 GM/DL (6.4-8.2); TRIGLYCERIDES LEVEL 174 MG/DL (<150)
[2020-07-17 13:09] LABS: HIV 1&2 SCREEN CENTAUR NEGATIVE (NEGATIVE)
== END ==
LOC: M LAB REF 11:23
PROVIDERS: ATTEND Nurse Practitioner Family
DX: Z11.3 Encounter for screening for infections with a predominantly sexual mode of transmission (principal); E55.9 Vitamin D deficiency, unspecified; E78.5 Hyperlipidemia, unspecified; F17.210 Nicotine dependence, cigarettes, uncomplicated; Z79.899 Other long term (current) drug therapy; Z72.51 High risk heterosexual behavior

== ENCOUNTER 2020-07-28 15:03 | Outpatient (RCR) | payer MEDICARE | END 2020-08-14 | LOC: M OUTALCOH 15:03 | PROVIDERS: ATTEND Psychiatry & Neurology Addiction Medicine | DX: F15.20 Other stimulant dependence, uncomplicated (principal); F12.20 Cannabis dependence, uncomplicated; F10.20 Alcohol dependence, uncomplicated ==

== ENCOUNTER 2020-09-05 13:00 | Outpatient (RCR) | payer MEDICARE | END 2020-09-14 | LOC: M OUTALCOH 13:00 | PROVIDERS: ATTEND Psychiatry & Neurology Addiction Medicine | DX: F10.20 Alcohol dependence, uncomplicated (principal); F12.20 Cannabis dependence, uncomplicated; F15.20 Other stimulant dependence, uncomplicated ==

== ENCOUNTER 2020-09-19 12:57 | Outpatient (RCR) | payer MEDICARE | END 2020-10-15 | LOC: M OUTALCOH 12:57 | PROVIDERS: ATTEND Psychiatry & Neurology Psychiatry | DX: F15.20 Other stimulant dependence, uncomplicated (principal); F12.20 Cannabis dependence, uncomplicated; F10.20 Alcohol dependence, uncomplicated ==

== ENCOUNTER 2020-11-07 13:27 | Outpatient (RCR) | payer MEDICARE | END 2020-11-12 | LOC: M OUTALCOH 13:27 | PROVIDERS: ATTEND Psychiatry & Neurology Psychiatry | DX: F15.20 Other stimulant dependence, uncomplicated (principal); F12.20 Cannabis dependence, uncomplicated ==

== ENCOUNTER 2020-12-05 14:00 | Outpatient (RCR) | payer MEDICARE | END 2020-12-13 | LOC: M OUTALCOH 14:00 | PROVIDERS: ATTEND Psychiatry & Neurology Psychiatry | DX: F15.20 Other stimulant dependence, uncomplicated (principal); F12.20 Cannabis dependence, uncomplicated; F17.200 Nicotine dependence, unspecified, uncomplicated ==

== ENCOUNTER 2021-01-09 13:00 | Outpatient (RCR) | payer MEDICARE | END 2021-01-12 | LOC: M OUTALCOH 13:00 | PROVIDERS: ATTEND Psychiatry & Neurology Psychiatry | DX: F15.20 Other stimulant dependence, uncomplicated (principal); F12.20 Cannabis dependence, uncomplicated; F17.200 Nicotine dependence, unspecified, uncomplicated ==

== ENCOUNTER 2021-02-01 11:00 | Outpatient (RCR) | payer MEDICARE | END 2021-02-12 | LOC: M OUTALCOH 11:00 | PROVIDERS: ATTEND Psychiatry & Neurology Psychiatry | DX: F15.20 Other stimulant dependence, uncomplicated (principal); F12.20 Cannabis dependence, uncomplicated; F17.200 Nicotine dependence, unspecified, uncomplicated ==

== ENCOUNTER 2021-03-01 13:15 | Outpatient (RCR) | payer MEDICARE | END 2021-03-14 | LOC: M OUTALCOH 13:15 | PROVIDERS: ATTEND Psychiatry & Neurology Psychiatry | DX: F15.20 Other stimulant dependence, uncomplicated (principal); F12.20 Cannabis dependence, uncomplicated; F17.200 Nicotine dependence, unspecified, uncomplicated ==

== ENCOUNTER 2021-03-22 11:32 | Outpatient (RCR) | payer MEDICARE | END 2021-04-14 | LOC: M OUTALCOH 11:32 | PROVIDERS: ATTEND Psychiatry & Neurology Psychiatry | DX: F15.20 Other stimulant dependence, uncomplicated (principal); F12.20 Cannabis dependence, uncomplicated; F17.200 Nicotine dependence, unspecified, uncomplicated ==

== ENCOUNTER 2021-04-17 16:39 | Outpatient (RCR) | payer MEDICARE, MEDICAID | END 2021-05-15 | LOC: M OUTALCOH 16:39 | PROVIDERS: ATTEND Psychiatry & Neurology Psychiatry | DX: F15.20 Other stimulant dependence, uncomplicated (principal); F12.20 Cannabis dependence, uncomplicated ==

== ENCOUNTER → 2021-06-14 | Outpatient (RCR) | payer MEDICARE, MEDICAID | LOC: M OUTALCOH 13:09 | PROVIDERS: ATTEND Psychiatry & Neurology Psychiatry | DX: F12.20 Cannabis dependence, uncomplicated (principal); F15.20 Other stimulant dependence, uncomplicated; F17.200 Nicotine dependence, unspecified, uncomplicated ==

== ENCOUNTER 2021-07-26 13:00 | Outpatient (RCR) | payer MEDICARE, MEDICAID ==
[~2021-07-26 13:00] MED LIST changes: +FLUO-96 PO; -FLUO20CA20 PO
== END 2021-08-14 ==
LOC: M OUTALCOH 13:00
PROVIDERS: ATTEND Psychiatry & Neurology Psychiatry
DX: F12.20 Cannabis dependence, uncomplicated (principal); F15.20 Other stimulant dependence, uncomplicated; F17.200 Nicotine dependence, unspecified, uncomplicated

== ENCOUNTER 2021-09-04 13:45 | Outpatient (RCR) | payer MEDICARE, MEDICAID ==
[~2021-09-04 13:45] MED LIST changes: -FLUO-96 PO; +FLUO20CA20 PO
== END 2021-09-14 ==
LOC: M OUTALCOH 13:45
PROVIDERS: ATTEND Psychiatry & Neurology Psychiatry
DX: F12.20 Cannabis dependence, uncomplicated (principal); F15.20 Other stimulant dependence, uncomplicated; F17.200 Nicotine dependence, unspecified, uncomplicated
CPT/HCPCS: 90832; 90834; H0038

== ENCOUNTER 2021-10-09 14:00 | Outpatient (RCR) | payer MEDICARE, MEDICAID ==
[~2021-10-09 14:00] MED LIST changes: +FLUO-96 PO; -FLUO20CA20 PO
== END 2021-10-15 ==
LOC: M OUTALCOH 14:00
PROVIDERS: ATTEND Psychiatry & Neurology Psychiatry
DX: F12.20 Cannabis dependence, uncomplicated (principal); F15.20 Other stimulant dependence, uncomplicated; F17.200 Nicotine dependence, unspecified, uncomplicated

== ENCOUNTER 2021-11-05 09:51 | Outpatient (RCR) | payer MEDICARE, MEDICAID | END 2021-11-12 | LOC: M OUTALCOH 09:51 | PROVIDERS: ATTEND Psychiatry & Neurology Psychiatry | DX: F12.20 Cannabis dependence, uncomplicated (principal); F15.20 Other stimulant dependence, uncomplicated; F17.200 Nicotine dependence, unspecified, uncomplicated | CPT/HCPCS: H0038; H0050 ==

== ENCOUNTER 2021-12-05 13:53 | Outpatient (RCR) | payer MEDICARE, MEDICAID | END 2021-12-13 | LOC: M OUTALCOH 13:53 | PROVIDERS: ATTEND Psychiatry & Neurology Psychiatry | DX: F12.20 Cannabis dependence, uncomplicated (principal); F15.20 Other stimulant dependence, uncomplicated; F17.200 Nicotine dependence, unspecified, uncomplicated ==

== ENCOUNTER 2022-01-25 13:00 | Outpatient (RCR) | payer MEDICARE, MEDICAID | END 2022-02-12 | LOC: M OUTALCOH 13:00 | PROVIDERS: ATTEND Psychiatry & Neurology Psychiatry | DX: F12.20 Cannabis dependence, uncomplicated (principal); F15.20 Other stimulant dependence, uncomplicated; F17.200 Nicotine dependence, unspecified, uncomplicated ==

== ENCOUNTER → 2022-03-04 | Outpatient (REF) | payer MEDICARE, MEDICAID ==
[2022-03-04 14:05] LABS: SOURCE, BODY FLUID LFT KNEE
[2022-03-04 14:06] LABS: CRYSTALS, BODY FLUID NONE SEEN (NONE SEEN); SOURCE, BODY FLUID CRYSTALS LFT KNEE
[2022-03-04 14:18] LABS: SYNOVIAL FLUID COLOR YELLOW (COLORLESS)
[2022-03-04 14:49] LABS: SOURCE, BODY FLUID GLUCOSE LFT KNEE
== END ==
LOC: M LAB REF 12:41
PROVIDERS: ATTEND Physician Assistant
DX: M17.12 Unilateral primary osteoarthritis, left knee (principal)

== ENCOUNTER → 2022-03-04 | Outpatient (CLI) | payer MEDICARE, MEDICAID | LOC: M WUC 11:28 | PROVIDERS: ATTEND Physician Assistant | DX: M17.12 Unilateral primary osteoarthritis, left knee (principal) ==

== ENCOUNTER 2022-03-08 13:00 | Outpatient (RCR) | payer MEDICARE, MEDICAID | END 2022-03-14 | LOC: M OUTALCOH 13:00 | PROVIDERS: ATTEND Psychiatry & Neurology Psychiatry | DX: F12.20 Cannabis dependence, uncomplicated (principal); F15.20 Other stimulant dependence, uncomplicated; F17.200 Nicotine dependence, unspecified, uncomplicated ==

== ENCOUNTER 2022-04-05 12:32 | Outpatient (RCR) | payer MEDICARE, MEDICAID | END 2022-04-14 | LOC: M OUTALCOH 12:32 | PROVIDERS: ATTEND Psychiatry & Neurology Psychiatry | DX: F15.20 Other stimulant dependence, uncomplicated (principal); F12.20 Cannabis dependence, uncomplicated ==

== ENCOUNTER 2022-05-01 11:04 | Outpatient (RCR) | payer MEDICARE, MEDICAID | END 2022-05-15 | LOC: M OUTALCOH 11:04 | PROVIDERS: ATTEND Psychiatry & Neurology Psychiatry | DX: F15.20 Other stimulant dependence, uncomplicated (principal); F12.20 Cannabis dependence, uncomplicated; F17.200 Nicotine dependence, unspecified, uncomplicated ==

== ENCOUNTER 2022-07-03 11:00 | Outpatient (RCR) | payer MEDICARE, MEDICAID | END 2022-07-15 | LOC: M OUTALCOH 11:00 | PROVIDERS: ATTEND Psychiatry & Neurology Psychiatry | DX: F12.20 Cannabis dependence, uncomplicated (principal); F15.20 Other stimulant dependence, uncomplicated; F17.200 Nicotine dependence, unspecified, uncomplicated ==

== ENCOUNTER 2022-08-05 15:57 | Outpatient (RCR) | payer MEDICARE, MEDICAID | END 2022-08-14 | LOC: M OUTALCOH 15:57 | PROVIDERS: ATTEND Psychiatry & Neurology Psychiatry | DX: F15.20 Other stimulant dependence, uncomplicated (principal); F12.20 Cannabis dependence, uncomplicated ==

== ENCOUNTER → 2023-06-18 | Outpatient (CLI) | payer MEDICARE, MEDICAID | LOC: M OUTALCOH 08:15 | PROVIDERS: ATTEND Psychiatry & Neurology Psychiatry | DX: Z03.89 Encounter for observation for other suspected diseases and conditions ruled out (principal) ==

== ENCOUNTER → 2023-07-07 | Outpatient (REF) | payer MEDICAID ==
[2023-07-07 18:29] LABS: BASO # 0.1 10^3/uL (0.0-0.2); BASO % 0.8 % (0.0-1.0); EOS # 0.1 10^3/uL (0.0-0.5); EOS % 1.4 % (0.0-3.0); HEMATOCRIT 48.6 % (42.0-52.0); HEMOGLOBIN 16.5 g/dl (13.5-17.5); LYMPH # 3.3 10^3/uL (1.5-5.0); LYMPH % 36.8 % (24.0-44.0); MEAN CORPUSCULAR HEMOGLOBIN 30.4 pg (27.0-33.0); MEAN CORPUSCULAR VOLUME 89.5 fl (80.0-96.0); MONO # 0.7 10^3/uL (0.0-0.8); MONO % 7.2 % (2.0-8.0); NEUTROPHILS # 4.7 10^3/uL (1.5-8.5); NEUTROPHILS % 52.4 % (36.0-66.0); PLATELET COUNT, AUTOMATED 244 10^3/uL (150-450); RED BLOOD COUNT 5.43 10^6/uL (4.30-6.10)
[2023-07-08 02:42] LABS: HEMOGLOBIN A1c 5.3 % (4.0-6.0)
[2023-07-08 04:02] LABS: ALKALINE PHOSPHATASE 73 U/L (46-116); ALT/SGPT 45 U/L (7.0-40); AST/SGOT 27 U/L (<34); BILIRUBIN,TOTAL 0.4 MG/DL (0.3-1.2); BLOOD UREA NITROGEN 8 MG/DL (9-23); CALCIUM LEVEL 9.7 MG/DL (8.5-10.1); CARBON DIOXIDE LEVEL 30 MMOL/L (20-31); CHLORIDE LEVEL 103 MMOL/L (98-107); CHOLESTEROL LEVEL 196 MG/DL (<200); CHOLESTEROL RISK RATIO 3.96 (<5); CREATININE FOR GFR 0.76 MG/DL (0.70-1.30); GLOMERULAR FILTRATION RATE > 60.0 (>60); GLUCOSE, FASTING 84 MG/DL (60-100); HDL CHOLESTEROL 49.4 MG/DL (>40); LDL CHOLESTEROL 119.8 MG/DL (<100); NON-HDL-C 146.6 MG/DL; POTASSIUM SERUM 4.3 MMOL/L (3.5-5.1); SODIUM LEVEL 140 MMOL/L (136-145); THYROID STIMULATING HORMONE 1.397 uIU/ML (0.55-4.78); TOTAL 25(OH) VITAMIN D 22.5 NG/ML (20.0-100.0); TOTAL PROTEIN 7.1 G/DL (5.7-8.2); TRIGLYCERIDES LEVEL 134 MG/DL (<150)
== END ==
LOC: M LAB REF 17:48
PROVIDERS: ATTEND Nurse Practitioner Family
DX: Z13.228 Encounter for screening for other metabolic disorders (principal)

== ENCOUNTER 2023-07-10 09:55 | Outpatient (RCR) | payer MEDICARE, MEDICAID | END 2023-07-15 | LOC: M OUTALCOH 09:55 | PROVIDERS: ATTEND Psychiatry & Neurology Psychiatry | DX: F12.20 Cannabis dependence, uncomplicated (principal); F15.20 Other stimulant dependence, uncomplicated; F17.200 Nicotine dependence, unspecified, uncomplicated ==

== ENCOUNTER → 2023-08-14 | Outpatient (RCR) | payer MEDICARE, MEDICAID | LOC: M OUTALCOH 07-25 12:59 | PROVIDERS: ATTEND Psychiatry & Neurology Psychiatry | DX: F12.20 Cannabis dependence, uncomplicated (principal); F15.20 Other stimulant dependence, uncomplicated; F17.200 Nicotine dependence, unspecified, uncomplicated ==

== ENCOUNTER 2023-09-12 10:55 | Outpatient (RCR) | payer MEDICARE, MEDICAID | END 2023-09-14 | LOC: M OUTALCOH 10:55 | PROVIDERS: ATTEND Psychiatry & Neurology Psychiatry | DX: F12.20 Cannabis dependence, uncomplicated (principal); F15.20 Other stimulant dependence, uncomplicated; F17.200 Nicotine dependence, unspecified, uncomplicated ==

== ENCOUNTER 2023-10-10 10:35 | Outpatient (RCR) | payer MEDICARE, MEDICAID | END 2023-10-15 | LOC: M OUTALCOH 10:35 | PROVIDERS: ATTEND Psychiatry & Neurology Psychiatry | DX: F15.20 Other stimulant dependence, uncomplicated (principal); F12.20 Cannabis dependence, uncomplicated; F17.200 Nicotine dependence, unspecified, uncomplicated ==

== ENCOUNTER → 2023-10-20 | Outpatient (REF) | payer MEDICARE, MEDICAID ==
[2023-10-20 17:02] LABS: CHOLESTEROL RISK RATIO 4.06 (<5); HDL CHOLESTEROL 39.9 MG/DL (>40); LDL CHOLESTEROL 88.5 MG/DL (<100); NON-HDL-C 122.1 MG/DL
== END ==
LOC: M LAB REF 16:37
PROVIDERS: ATTEND Nurse Practitioner Family
DX: E78.5 Hyperlipidemia, unspecified (principal)

== ENCOUNTER 2023-10-31 10:59 | Outpatient (RCR) | payer MEDICARE, MEDICAID | END 2023-11-13 | LOC: M OUTALCOH 10:59 | PROVIDERS: ATTEND Psychiatry & Neurology Psychiatry | DX: F15.20 Other stimulant dependence, uncomplicated (principal); F17.200 Nicotine dependence, unspecified, uncomplicated ==

== ENCOUNTER 2023-12-12 09:57 | Outpatient (RCR) | payer MEDICARE, MEDICAID | END 2023-12-14 | LOC: M OUTALCOH 09:57 | PROVIDERS: ATTEND Psychiatry & Neurology Psychiatry | DX: F15.20 Other stimulant dependence, uncomplicated (principal); F17.200 Nicotine dependence, unspecified, uncomplicated ==

== ENCOUNTER → 2024-01-13 | Outpatient (RCR) | payer MEDICARE, MEDICAID | LOC: M OUTALCOH 12-16 15:43 | PROVIDERS: ATTEND Psychiatry & Neurology Psychiatry | DX: F15.20 Other stimulant dependence, uncomplicated (principal); F17.200 Nicotine dependence, unspecified, uncomplicated ==

== ENCOUNTER → 2024-02-13 | Outpatient (RCR) | payer MEDICARE, MEDICAID | LOC: M OUTALCOH 01-15 15:06 | PROVIDERS: ATTEND Psychiatry & Neurology Psychiatry | DX: F12.20 Cannabis dependence, uncomplicated (principal); F15.20 Other stimulant dependence, uncomplicated; F17.200 Nicotine dependence, unspecified, uncomplicated ==

== ENCOUNTER → 2024-02-16 | Outpatient (REF) | payer MEDICARE, MEDICAID ==
[~2024-02-16] MED LIST changes: +FLUO-365 PO; -FLUO20CA22 PO
[2024-02-16 13:11] LABS: CHOLESTEROL RISK RATIO 5.5 (<5)
== END ==
LOC: M LAB REF 12:33
PROVIDERS: ATTEND Nurse Practitioner Family
DX: E78.5 Hyperlipidemia, unspecified (principal)

== ENCOUNTER → 2024-02-25 | Outpatient (CLI) | payer MEDICARE, MEDICAID | LOC: M WUC 09:24 | PROVIDERS: ATTEND Nurse Practitioner Family | DX: M54.50 Low back pain, unspecified (principal); M51.37 Other intervertebral disc degeneration, lumbosacral region ==

== ENCOUNTER 2024-02-27 15:00 | Outpatient (RCR) | payer MEDICARE, MEDICAID | END 2024-03-14 | LOC: M OUTALCOH 15:00 | PROVIDERS: ATTEND Psychiatry & Neurology Psychiatry | DX: F15.20 Other stimulant dependence, uncomplicated (principal); F17.200 Nicotine dependence, unspecified, uncomplicated ==

== ENCOUNTER → 2025-07-06 | Outpatient (CLI) | payer MEDICARE, MEDICAID | LOC: M OUTALCOH 09:50 | PROVIDERS: ATTEND Psychiatry & Neurology Psychiatry | DX: F15.20 Other stimulant dependence, uncomplicated (principal); F12.20 Cannabis dependence, uncomplicated; F17.200 Nicotine dependence, unspecified, uncomplicated ==

== ENCOUNTER → 2025-07-15 | Outpatient (RCR) | payer MEDICARE, MEDICAID | LOC: M OUTALCOH 07-11 10:56 | PROVIDERS: ATTEND Psychiatry & Neurology Psychiatry | DX: F12.20 Cannabis dependence, uncomplicated (principal); F15.20 Other stimulant dependence, uncomplicated; F17.200 Nicotine dependence, unspecified, uncomplicated ==

== ENCOUNTER 2025-08-10 08:40 | Outpatient (RCR) | payer MEDICARE, MEDICAID | END 2025-08-14 | LOC: M OUTALCOH 08:40 | PROVIDERS: ATTEND Psychiatry & Neurology Psychiatry | DX: F15.20 Other stimulant dependence, uncomplicated (principal); F12.20 Cannabis dependence, uncomplicated; F17.200 Nicotine dependence, unspecified, uncomplicated | CPT/HCPCS: 90832; 90834; 90853; G0463 ==

== ENCOUNTER 2025-09-12 10:35 | Outpatient (RCR) | payer MEDICARE, MEDICAID | END 2025-09-14 | LOC: M OUTALCOH 10:35 | PROVIDERS: ATTEND Psychiatry & Neurology Psychiatry | DX: F15.20 Other stimulant dependence, uncomplicated (principal); F12.20 Cannabis dependence, uncomplicated; F17.200 Nicotine dependence, unspecified, uncomplicated ==